=== PATIENT | male | born 1990 | race Caucasian/White ===

== ENCOUNTER 2019-01-28 07:16 | Inpatient (IN) | payer OTHER, BC ==
[~2019-01-28 07:16] MED LIST: DESFLURANE 15 MIN; ROCURONIUM 50 MG INJ; SUCCINYLCHOLINE CHLORIDE 100 MG/5 ML SYG IV
[2019-01-28] MEDS ORDERED: SUCCINYLCHOLINE CHLORIDE 100 MG/5 ML SYG IV (09:48)
[2019-01-28] MEDS ORDERED: PROPOFOL 20 ML (09:48)
[2019-01-28] MEDS ORDERED: LIDOCAINE 100 MG SYRINGE (09:48)
[2019-01-28] MEDS ORDERED: MIDAZOLAM 1 MG/ML 2 ML INJ (09:48)
[2019-01-28] MEDS ORDERED: ROCURONIUM 50 MG INJ (09:48)
[2019-01-28] MEDS ORDERED: HYDROmorphONE 1 MG/5 ML IV SYRINGE IV (10:00)
[2019-01-28] MEDS ORDERED: ONDANSETRON 4 MG INJ IV ×2 (10:00→22:00)
[2019-01-28] MEDS ORDERED: LABETALOL HCL 20MG INJ IV (10:00)
[2019-01-28] MEDS ORDERED: CEFAZOLIN 1 GM INJ ×2 (10:57→17:14)
[2019-01-28] MEDS: BUPIVACAINE 0.5%/EPI (SDV) 30 ML INJ (12:14)
[2019-01-28] MEDS: LIDOCAINE 0.5% (SDV) 50 ML INJ (12:15)
[2019-01-28] MEDS: POLYMYXIN/BACITRACIN 1L IRRIG (12:16)
[2019-01-28] MEDS ORDERED: DEXAMETHASONE 4 MG/ML 5 ML INJ (12:29)
[2019-01-28] MEDS: THROMBIN 5000 UNIT VIAL (13:48)
[2019-01-28] MEDS: GELATIN SIZE 100 SPONGE (13:49)
[2019-01-28] MEDS ORDERED: PHENYLephrine (100 MCG/ML) 5ML SYG (14:38)
[2019-01-28] MEDS ORDERED: POLYMYXIN/BACITRACIN 1L IRRIG (15:24)
[2019-01-28] MEDS ORDERED: FENTAnyl 50 MCG/ML VIAL (16:02)
[2019-01-28] MEDS ORDERED: morphine 10 MG INJ (18:15)
[2019-01-28] MEDS ORDERED: ONDANSETRON 4 MG INJ (18:24)
[2019-01-28] MEDS ORDERED: NALOXONE (0.4 MG/ML) INJ IV (18:30)
[2019-01-28] MEDS ORDERED: MAGNESIUM HYDROXIDE 30ML CUP PO (18:30)
[2019-01-28] MEDS ORDERED: AL HYDROX/MG HYDROX/SIMETH 30 ML CUP PO (18:30)
[2019-01-28] MEDS ORDERED: BISACODYL 10 MG SUPP PR (18:30)
[2019-01-28] MEDS ORDERED: HYDROmorphONE 0.5 MG/0.5 ML SYG IV (18:30)
[2019-01-28] MEDS ORDERED: DIPHENHYDRAMINE 50 MG INJ (18:32)
[2019-01-28] MEDS: HYDROmorphONE 1 MG/5 ML IV SYRINGE IV ×4 (18:52→19:14)
[2019-01-28] MEDS: ONDANSETRON 4 MG INJ IV (18:53)
[2019-01-28] MEDS: CEFAZOLIN 1 GM/50 ML (PMX) 50 ML IVPB (19:03)
[2019-01-28] MEDS: HYDROCODONE/APAP (10/325) TAB PO (19:32)
[2019-01-28] MEDS: FENTAnyl 50 MCG/ML VIAL IV (20:24)
[2019-01-28] MEDS: HYDROmorphONE 0.5 MG/0.5 ML SYG IV ×4 (20:58→23:59)
[2019-01-28] MEDS: DOCUSATE SODIUM 100 MG CAP PO (20:58)
[2019-01-28] MEDS: CYCLOBENZAPRINE 10 MG TAB PO (20:58)
[2019-01-28] MEDS: D5W-0.45 NACL + KCL 20 MEQ 1,000 ML IV (21:01)
[2019-01-28] MEDS: traMADol 50 MG TAB PO (21:21)
[2019-01-28] MEDS ORDERED: ACETAMINOPHEN 325 MG TAB PO (22:00)
[2019-01-28] MEDS ORDERED: NACL 0.9% 3 ML SYG IV (22:00)
[2019-01-28 22:06] LABS: ADD MAN DIFF? NO
[2019-01-28 22:08] LABS: BASOPHILS % 0.1 % (0.0-2.0); HEMATOCRIT 39.1 % (42.0-52.0); HEMOGLOBIN 13.2 g/dl (14.0-18.0); LYMPHOCYTES # 0.7 10^3/ul (0.8-2.9); LYMPHOCYTES % 5.8 % (15.0-51.0); MEAN CORPUSCULAR HEMOGLOBIN 27.9 pg (29.0-33.0); MEAN CORPUSCULAR HGB CONC 33.8 g/dl (32.0-37.0); MEAN CORPUSCULAR VOLUME 82.7 fl (82.0-101.0); MEAN PLATELET VOLUME 10.3 fl (7.4-10.4); MONOCYTE # 0.2 10^3/ul (0.3-0.9); MONOCYTES % 1.9 % (0.0-11.0); NEUTROPHIL # 10.3 10^3/ul (1.6-7.5); NEUTROPHILS % 91.4 % (39.0-77.0); PLATELET COUNT 248 10^3/UL (140-415); RED BLOOD COUNT 4.73 10^6/ul (4.70-6.10); RED CELL DISTRIBUTION WIDTH 12.5 % (11.5-14.5)
[2019-01-28 22:08] LABS: WHITE BLOOD COUNT 11.2 10^3/ul (4.8-10.8)
[2019-01-28 22:27] LABS: ALANINE AMINOTRANSFERASE 19 IU/L (13-69); ALBUMIN/GLOBULIN RATIO 1.42; ALKALINE PHOSPHATASE 52 IU/L (42-121); ANION GAP 12 (5-13); ASPARTATE AMINO TRANSFERASE 41 IU/L (15-46); BILIRUBIN,INDIRECT 0.4 mg/dl (0-1.1); BILIRUBIN,TOTAL 0.4 mg/dl (0.2-1.3); BLOOD UREA NITROGEN 12 mg/dl (7-20); CALCIUM 9.3 mg/dl (8.4-10.2); CARBON DIOXIDE 25 mmol/L (21-31); CHLORIDE 102 mmol/L (97-110); CREATININE 0.58 mg/dl (0.61-1.24); Estimated GFR > 60 mL/min (>60); GLUCOSE 148 mg/dl (70-220); POTASSIUM 4.1 mmol/L (3.5-5.1); SODIUM 139 mmol/L (135-144); TOTAL PROTEIN 6.8 g/dl (6.1-8.1)
[2019-01-29] MEDS: HYDROCODONE/APAP (10/325) TAB PO ×4 (00:31→18:25)
[2019-01-29] MEDS: HYDROmorphONE 0.5 MG/0.5 ML SYG IV ×10 (01:56→22:50)
[2019-01-29] MEDS: DEXAMETHASONE 4 MG/ML 1 ML INJ IV ×4 (01:56→18:24)
[2019-01-29] MEDS: GABAPENTIN 300 MG CAP PO ×4 (01:57→21:07)
[2019-01-29] MEDS: CEFAZOLIN 1 GM/50 ML (PMX) 50 ML IVPB ×2 (02:40→10:46)
[2019-01-29] MEDS: traMADol 50 MG TAB PO (03:34)
[2019-01-29 05:21] LABS: ADD MAN DIFF? NO
[2019-01-29 05:34] LABS: WHITE BLOOD COUNT 11.7 10^3/ul (4.8-10.8)
[2019-01-29 05:34] LABS: BASOPHILS % 0.2 % (0.0-2.0); HEMATOCRIT 39.4 % (42.0-52.0); HEMOGLOBIN 13.1 g/dl (14.0-18.0); LYMPHOCYTES # 0.7 10^3/ul (0.8-2.9); LYMPHOCYTES % 6.2 % (15.0-51.0); MEAN CORPUSCULAR HEMOGLOBIN 27.9 pg (29.0-33.0); MEAN CORPUSCULAR HGB CONC 33.2 g/dl (32.0-37.0); MEAN PLATELET VOLUME 11.2 fl (7.4-10.4); MONOCYTE # 0.3 10^3/ul (0.3-0.9); MONOCYTES % 2.5 % (0.0-11.0); NEUTROPHIL # 10.6 10^3/ul (1.6-7.5); NEUTROPHILS % 90.3 % (39.0-77.0); PLATELET COUNT 254 10^3/UL (140-415); RED BLOOD COUNT 4.69 10^6/ul (4.70-6.10); RED CELL DISTRIBUTION WIDTH 12.4 % (11.5-14.5)
[2019-01-29 05:57] LABS: ALANINE AMINOTRANSFERASE 20 IU/L (13-69); ALBUMIN 3.7 g/dl (3.3-4.9); ALBUMIN/GLOBULIN RATIO 1.37; ALKALINE PHOSPHATASE 52 IU/L (42-121); ANION GAP 8 (5-13); ASPARTATE AMINO TRANSFERASE 61 IU/L (15-46); BILIRUBIN,INDIRECT 0.5 mg/dl (0-1.1); BILIRUBIN,TOTAL 0.5 mg/dl (0.2-1.3); BLOOD UREA NITROGEN 10 mg/dl (7-20); CALCIUM 9.1 mg/dl (8.4-10.2); CARBON DIOXIDE 27 mmol/L (21-31); CHLORIDE 104 mmol/L (97-110); CREATININE 0.72 mg/dl (0.61-1.24); Estimated GFR > 60 mL/min (>60); GLUCOSE 185 mg/dl (70-220); POTASSIUM 3.8 mmol/L (3.5-5.1); SODIUM 139 mmol/L (135-144); TOTAL PROTEIN 6.4 g/dl (6.1-8.1)
[2019-01-29] MEDS: PANTOPRAZOLE 40 MG INJ IV (06:37)
[2019-01-29] MEDS: D5W-0.45 NACL + KCL 20 MEQ 1,000 ML IV ×2 (07:59→14:14)
[2019-01-29] MEDS: CYCLOBENZAPRINE 10 MG TAB PO ×2 (09:31→21:07)
[2019-01-29] MEDS: DOCUSATE SODIUM 100 MG CAP PO ×2 (09:32→21:07)
[2019-01-30] MEDS: DEXAMETHASONE 4 MG/ML 1 ML INJ IV (00:12)
[2019-01-30] MEDS: D5W-0.45 NACL + KCL 20 MEQ 1,000 ML IV ×2 (00:14→10:14)
[2019-01-30] MEDS: HYDROCODONE/APAP (10/325) TAB PO ×3 (00:30→12:53)
[2019-01-30 05:01] LABS: ADD MAN DIFF? NO
[2019-01-30 05:08] LABS: WHITE BLOOD COUNT 18.4 10^3/ul (4.8-10.8)
[2019-01-30 05:08] LABS: BASOPHILS % 0.1 % (0.0-2.0); HEMATOCRIT 39.3 % (42.0-52.0); HEMOGLOBIN 12.7 g/dl (14.0-18.0); LYMPHOCYTES # 0.8 10^3/ul (0.8-2.9); LYMPHOCYTES % 4.3 % (15.0-51.0); MEAN CORPUSCULAR HEMOGLOBIN 27.7 pg (29.0-33.0); MEAN CORPUSCULAR HGB CONC 32.3 g/dl (32.0-37.0); MEAN CORPUSCULAR VOLUME 85.6 fl (82.0-101.0); MEAN PLATELET VOLUME 10.9 fl (7.4-10.4); MONOCYTES % 5.6 % (0.0-11.0); NEUTROPHIL # 16.4 10^3/ul (1.6-7.5); NEUTROPHILS % 89.1 % (39.0-77.0); PLATELET COUNT 290 10^3/UL (140-415); RED BLOOD COUNT 4.59 10^6/ul (4.70-6.10); RED CELL DISTRIBUTION WIDTH 13.1 % (11.5-14.5)
[2019-01-30] MEDS: PANTOPRAZOLE (EC) 40 MG TAB PO (06:56)
[2019-01-30] MEDS: DOCUSATE SODIUM 100 MG CAP PO (08:53)
[2019-01-30] MEDS: GABAPENTIN 300 MG CAP PO ×2 (08:53→12:53)
[2019-01-30] MEDS: HYDROmorphONE 0.5 MG/0.5 ML SYG IV (08:53)
[2019-01-30] MEDS ORDERED: IOHEXOL 300MG/ML 150 ML BTL (12:09)
[2019-01-30] MEDS ORDERED: SOD CHLORIDE 0.9% 100 ML (12:09)
[2019-01-30] MEDS: OXYCODONE/ACETAMINOPHEN (10/325) TAB PO (14:53)
[2019-01-30] MEDS: traMADol 50 MG TAB PO (18:46)
== END 2019-01-30 19:15 | disposition home or self-care (01) | DRG 455 ==
LOC: REC 07:16 → MS1 20:30
PROC: 0SG00AJ Fusion of Lumbar Vertebral Joint with Interbody Fusion Device, Posterior Approach, Anterior Column, Open Approach (ICD-10-PCS; principal; 2019-01-28 09:30)
PROC: 0SG0071 Fusion of Lumbar Vertebral Joint with Autologous Tissue Substitute, Posterior Approach, Posterior Column, Open Approach (ICD-10-PCS; 2019-01-28 09:30)
PROC: 0SG30AJ Fusion of Lumbosacral Joint with Interbody Fusion Device, Posterior Approach, Anterior Column, Open Approach (ICD-10-PCS; 2019-01-28 09:30)
PROC: 0SG3071 Fusion of Lumbosacral Joint with Autologous Tissue Substitute, Posterior Approach, Posterior Column, Open Approach (ICD-10-PCS; 2019-01-28 09:30)
PROC: 0SB20ZZ Excision of Lumbar Vertebral Disc, Open Approach (ICD-10-PCS; 2019-01-28 09:30)
PROC: 0SB40ZZ Excision of Lumbosacral Disc, Open Approach (ICD-10-PCS; 2019-01-28 09:30)
PROC: 01NB0ZZ Release Lumbar Nerve, Open Approach (ICD-10-PCS; 2019-01-28 09:30)
PROC: 07DS3ZZ Extraction of Vertebral Bone Marrow, Percutaneous Approach (ICD-10-PCS; 2019-01-28 09:30)
PROC: 4A11X4G Monitoring of Peripheral Nervous Electrical Activity, Intraoperative, External Approach (ICD-10-PCS; 2019-01-28 09:30)
DX: M51.16 Intervertebral disc disorders with radiculopathy, lumbar region (principal); M51.27 Other intervertebral disc displacement, lumbosacral region; M12.88 Other specific arthropathies, not elsewhere classified, other specified site; M48.061 Spinal stenosis, lumbar region without neurogenic claudication; M48.07 Spinal stenosis, lumbosacral region; M79.605 Pain in left leg; M79.604 Pain in right leg; G89.29 Other chronic pain; R20.0 Anesthesia of skin; R53.1 Weakness; F17.200 Nicotine dependence, unspecified, uncomplicated; S00.82XA Blister (nonthermal) of other part of head, initial encounter; X58.XXXA Exposure to other specified factors, initial encounter; Z79.891 Long term (current) use of opiate analgesic
CPT/HCPCS: 70486; 72114; 76536; 80053; 83036; 85025; 86850; 86900; 86901; 87070; 88304; 97110; 97116; 97162; 97530